=== PATIENT | female | born 1995 | race Caucasian/White ===

== ENCOUNTER 2016-11-14 02:10 | Emergency (ER) | payer OTHER ==
[~2016-11-14] VITALS: Ht 170.2 cm; Wt 60.0 kg
[~2016-11-14 02:10] MED LIST: HYDR2.5T PO; SERT-132 PO; Z.0.NO CURRENT MEDS; ZOLP5TAB3 PO
[2016-11-14 04:27] VITALS: BP 125/68; PULSE 68; RESP 18; TEMP 98.1; O2SAT 100
[2016-11-14 04:36] LABS: AUTOMATED NEUTROPHIL # 6.9 TH/MM3 (1.8-7.7); BASOPHIL % 0.3 % (0.0-2.0); EOSINOPHIL # 0.2 TH/MM3 (0-0.4); EOSINOPHIL % 1.9 % (0.0-4.0); HEMATOCRIT 45.9 % (35.0-46.0); HEMO FLAGS DIFF FINAL; LYMPH % 15.3 % (9.0-44.0); LYMPHOCYTE # 1.4 TH/MM3 (1.0-4.8); MEAN CELL VOLUME 89.4 FL (80.0-100.0); MEAN CORPUSCULAR HEMOGLOBIN 29.3 PG (27.0-34.0); MEAN CORPUSCULAR HGB CONC 32.8 % (32.0-36.0); MONO % 7.6 % (0.0-8.0); NEUT % 74.9 % (16.0-70.0); PLATELET COUNT 257 TH/MM3 (150-450); RED BLOOD COUNT 5.14 MIL/MM3 (4.00-5.30); RED CELL DISTRIBUTION WIDTH 12.6 % (11.6-17.2); WHITE BLOOD COUNT 9.2 TH/MM3 (4.0-11.0)
[2016-11-14 05:02] LABS: ANION GAP 6 MEQ/L (5-15); AST (GOT) 10 U/L (15-37); BICARBONATE 28.4 MEQ/L (21.0-32.0); BLOOD UREA NITROGEN 9 MG/DL (7-18); CHLORIDE 100 MEQ/L (98-107); GLOMERULAR FILTRATION RATE 82 ML/MIN (>89); SODIUM (NA) 134 MEQ/L (136-145)
[2016-11-14 05:04] LABS: ACETAMINOPHEN LESS THAN 2.0 MCG/ML (10.0-30.0); ALT (GPT) 18 U/L (10-53)
[2016-11-14 05:05] LABS: ALKALINE PHOSPHATASE 69 U/L (45-117); TOTAL BILIRUBIN ADULT 0.5 MG/DL (0.2-1.0)
[2016-11-14 05:11] LABS: ALCOHOL LESS THAN 3 MG/DL (0-5)
[2016-11-14 06:38] VITALS: BP 120/64; PULSE 66; RESP 18; O2SAT 100
--- NOTE | 2016-11-14 06:59 | PD ---
HPI Chief Complaint: Psychiatric Symptoms Time Seen by Provider: 04:12 Travel History International Travel<30 days: No Contact w/Intl Traveler<30days: No Traveled to known affect area: No History of Present Illness HPI Patient is a 21-year-old female who is brought in under [place] act because she has been cutting herself. She says she has been more depressed lately and is cutting herself with glass. She denies taking anything to harm herself. She denies drug or alcohol use. She denies any medical complaints at this time. [facility], [facility]ER [facility] Past Medical History Diminished Hearing: No Immunizations Current: Yes ?: Not LMP: IUD Social History Alcohol Use: No Tobacco Use: Yes Substance Use: No Allergies-Medications (Allergen,Severity, Reaction): Coded Allergies: No Known Allergies (Verified , 10/30/16) Reported Meds & Prescriptions Reported Meds & Active Scripts Active Zolpidem (Zolpidem Tartrate) 5 Mg Tab 5 Mg PO HS PRN Sertraline (Sertraline HCl) 50 Mg Tab 50 Mg PO DAILY Lortab 2.5/500 (Acetaminophen/Hydrocodone Bitart) Tab 1 Tab PO Q6HPRN FOR PAIN Reported No Current Meds (Miscellaneous Medication) Misc Review of Systems Except as stated in HPI: all other systems reviewed are Neg General / Constitutional: No: Fever, Chills HENT: No: Headaches, Lightheadedness Cardiovascular: No: Chest Pain or Discomfort Respiratory: No: Shortness of Breath Gastrointestinal: No: Nausea, Vomiting Genitourinary: No: Dysuria Musculoskeletal: No: Edema Skin: Positive Other (abrasions) Neurologic: No: Weakness, Dizziness Psychiatric: Positive: Depression Physical Exam Narrative GENERAL: Awake and alert, in no acute distress. SKIN: Focused skin assessment warm/dry. Several superficial scratches on her arms as well as her right leg. There is no active bleeding, no wounds that need to be repaired. HEAD: Atraumatic. Normocephalic. EYES: Pupils equal and round. No scleral icterus. ENT: Mucous membranes pink and moist. NECK: Trachea midline. No JVD. CARDIOVASCULAR: Regular rate and rhythm. No murmur appreciated. RESPIRATORY: No accessory muscle use. Clear to auscultation. Breath sounds equal bilaterally. GASTROINTESTINAL: Abdomen soft, non-tender, nondistended. MUSCULOSKELETAL: No obvious deformities. No clubbing. No cyanosis. No edema. NEUROLOGICAL: Awake and alert. No obvious cranial nerve deficits. Motor grossly within normal limits. Normal speech. PSYCHIATRIC: Appropriate mood and affect; insight and judgment normal. Data Data Last Documented VS Vital Signs Date Time Temp Pulse Resp B/P (MAP) Pulse Ox O2 Delivery O2 Flow Rate FiO2 11/14/16 06:38 66 18 120/64 (82) 100 Room Air 11/14/16 04:27 98.1 Orders Orders Complete Blood Count With Diff (11/14/16 04:12) Comprehensive Metabolic Panel (11/14/16 04:12) Ed Urine Pregnancytest Poc (11/14/16 04:12) Psych Screen (11/14/16 04:12) Drug Screen, Random Urine (11/14/16 04:12) Alcohol (Ethanol) (11/14/16 04:12) Salicylates (Aspirin) (11/14/16 04:12) Tylenol (Acetaminophen) (11/14/16 04:12) Labs Laboratory Tests Test 11/14/16 04:22 White Blood Count 9.2 TH/MM3 Red Blood Count 5.14 MIL/MM3 Hemoglobin 15.1 GM/DL Hematocrit 45.9 % Mean Corpuscular Volume 89.4 FL Mean Corpuscular Hemoglobin 29.3 PG Mean Corpuscular Hemoglobin Concent 32.8 % Red Cell Distribution Width 12.6 % Platelet Count 257 TH/MM3 Mean Platelet Volume 10.3 FL Neutrophils (%) (Auto) 74.9 % Lymphocytes (%) (Auto) 15.3 % Monocytes (%) (Auto) 7.6 % Eosinophils (%) (Auto) 1.9 % Basophils (%) (Auto) 0.3 % Neutrophils # (Auto) 6.9 TH/MM3 Lymphocytes # (Auto) 1.4 TH/MM3 Monocytes # (Auto) 0.7 TH/MM3 Eosinophils # (Auto) 0.2 TH/MM3 Basophils # (Auto) 0.0 TH/MM3 CBC Comment DIFF FINAL Differential Comment Blood Urea Nitrogen 9 MG/DL Creatinine 0.87 MG/DL Random Glucose 81 MG/DL Total Protein 7.4 GM/DL Albumin 4.1 GM/DL Calcium Level 9.5 MG/DL Alkaline Phosphatase 69 U/L Aspartate Amino Transf (AST/SGOT) 10 U/L Alanine Aminotransferase (ALT/SGPT) 18 U/L Total Bilirubin 0.5 MG/DL Sodium Level 134 MEQ/L Potassium Level 4.0 MEQ/L Chloride Level 100 MEQ/L Carbon Dioxide Level 28.4 MEQ/L Anion Gap 6 MEQ/L Estimat Glomerular Filtration Rate 82 ML/MIN Salicylates Level LESS THAN 1.7 MG/DL Acetaminophen Level LESS THAN 2.0 MCG/ML Ethyl Alcohol Level LESS THAN 3 MG/DL MDM Medical Decision Making Medical Screen Exam Complete: Yes Emergency Medical Condition: Yes Medical Record Reviewed: Yes Differential Diagnosis Psychosis versus intoxication versus suicidal thoughts Narrative Course Patient is a 21-year-old female who is brought in under [place] act because she has been cutting herself. Exam shows several superficial cuts, nothing requiring repair. Labs sent show no acute abnormalities. Patient will be medically cleared for psychiatric evaluation. Diagnosis Primary Impression: Deliberate self-cutting Condition: Stable Karin Chavis MD Nov 14, 2016 06:59
[2016-11-14 10:00] VITALS: BP 112/62; PULSE 62; RESP 16; O2SAT 99
[2016-11-14 23:07] VITALS: BP 136/64; PULSE 79; RESP 18
[2016-11-15 02:41] VITALS: BP 111/63; PULSE 97; RESP 18
[2016-11-15 06:49] VITALS: BP 119/64; PULSE 81; RESP 18; O2SAT 99
--- NOTE | 2016-11-15 07:38 | PD.PSY.CON ---
Provisional Diagnosis Admission Date Date of consultation 11/15/2016 [place]. 1. Adjustment disorder with mixed disturbance of emotions and conduct [place] II. Deferred History of Present Illness Service Psychiatry Consult Requested By Emergency department Reason for Consult [place]aj act Primary Care Physician Jonelle Zimmer M.D. HPI Ms. Zimmer is a 21-year-old female with a reported history of depression treated by primary care who presents under a Maharaj act alleging that the patient cut her leg in a suicidal gesture. Reviewing the electronic medical record, I see no prior psychiatric contact within our system. Patient seen and examined. Chart reviewed. Case discussed with nurse in the J- pod. There has been no evidence of any suicidality or homicidality while under observation in the J-pod. On my examination this morning, the patient says that she has been stressed because of difficulties with her ex-boyfriend, Lanre. Apparently the 2 broke up about a month and a half ago but have continued living together. Lanre is bringing other women home, and this is upsetting the patient. Patient reports that she has a history of nonsuicidal self-injurious behavior and was feeling somewhat "numb" and so cut herself superficially on her left leg to try to ameliorate this feeling. She denies that this cutting was suicidal in nature. She denies any suicidal or homicidal ideation, intent or plan now and contracts for safety. She is future oriented. She does admit to feeling mildly depressed but I can elicit no severe depressive or hypomanic/ manic symptoms at this time. She is following with a resident clinic and taking Zoloft for this problem, although she has not been on it long enough for it to have therapeutic effect. She denies any audiovisual hallucinations, and I can elicit no delusional material. The remainder of the psychiatric ROS is negative. The patient is requesting discharge from the emergency room this morning. Past psychiatric history: The patient reports a history of depression. She saw a psychotherapist several years ago but has never been under psychiatric care. She was prescribed Zoloft about 3 weeks ago from a resident clinic in the area and has been taking it as prescribed. No reported issues with tolerability, but she has not yet seen much therapeutic benefit from this agent. She denies a history of psychiatric admissions or suicide attempts. She does endorse a history of nonsuicidal self-injurious behavior as noted above. Family history: Patient reports that her mother has depression. Her father may have some degree of bipolar illness, but this has never been diagnosed. She denies a family history of suicide. Chemical dependency history: Patient described herself as a social drinker. Denies any abuse of drugs or alcohol. Social history: Patient broke up with her boyfriend Lanre but to continue to live together. She is single with no children. She has 2 semesters of college. 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 She denies any access to guns or firearms. She denies any particular yazidi or spiritual beliefs. With the patient's permission, I did endeavor on several occasions to obtain collateral from her mother, Ciera. I have tried both at the number provided to me by the patient [phone] as well as at the number listed in the EMR without success. I did leave voicemails on the first number requesting a call back. Review of Systems Except as stated in HPI: all other systems reviewed are Neg Past Family Social History Coded Allergies: No Known Allergies (Verified , 10/30/16) Past Medical History Patient denies any significant medical history Active Scripts Zolpidem (Zolpidem) 5 Mg Tab, 5 MG PO HS Y for INSOMNIA, #30 TAB 0 Refills Prov:Elyssa Barnett MD R3 10/30/16 Sertraline (Sertraline) 50 Mg Tab, 50 MG PO DAILY, #30 TAB 0 Refills Prov:Elyssa Barnett MD R3 10/30/16 Hydrocodone-Acetaminophen (Lortab 2.5/500) Tab, 1 TAB PO Q6HPRN, #15 FOR PAIN Prov:VIPIN APPLE M.D. 12/14/10 Reported Medications Miscellaneous (No Current Meds) Misc 12/14/10 Patient reports that she takes Zoloft at low dose Patient's Strengths (min. 2) Able to access clinical care. Verbally fluent. Physical Exam Physical exam completed by ED provider. On my examination today, the patient appears to be in no acute physical distress. No motor abnormalities noted. I do note several superficial scratches on the lateral aspect of her left leg. Labs and vitals reviewed: Vital Signs Vital Signs Date Time Temp Pulse Resp B/P (MAP) Pulse Ox O2 Delivery O2 Flow Rate FiO2 11/15/16 06:49 81 18 119/64 (82) 99 11/14/16 10:00 Room Air 11/14/16 04:27 98.1 Lab Results Test 11/14/16 09:00 Urine Opiates Screen NEG Urine Barbiturates Screen NEG Urine Amphetamines Screen NEG Urine Benzodiazepines Screen NEG Urine Cocaine Screen NEG Urine Cannabinoids Screen NEG Mental Status Examination Patient is in hospital attire. Patient is fairly well groomed and maintaining basic hygiene. Patient is awake and alert and oriented 3. No evidence of delirium. No motor abnormalities appreciated. Speech is within normal limits for rate, tone, volume. Language and fund of knowledge average. Focus and concentration intact. Memory grossly intact on clinical exam. Mood is mildly depressed. Affect remains full and reactive. Thought process linear. No delusions elicited. Denies audiovisual hallucinations and does not appear internally stimulated. Denies suicidal or homicidal ideation, intent, or plan and contracts for safety. Insight and judgment seem fair. Assessment & Plan Problem List: (1) Adjustment disorder ICD Codes: F43.20 - Adjustment disorder, unspecified Assessment & Plan 21-year-old female with psychiatric history as detailed above who presents under a [place] act. On my examination today, the patient denies any suicidal or homicidal ideation. She is kendell for safety. She engaged in NSSIB in response to conflict with ex-boyfriend and has a history of NSSIB in the past. There is no evidence of any severely unstable mental illness as defined under the Maharaj act in this patient at this time. She appears to be attending to her basic needs. Synthesizing this information and weighing the relevant factors, I tire installer that the patient does not presently meet the Maharaj act criteria. I have lifted the Maharaj act. The patient is requesting discharge from the ER this morning. I have counseled the patient regarding warning signs for need to return to the psychiatric emergency room as part of a general safety plan. I have recommended outpatient psychiatric follow-up, and the nurse will provide the appropriate referrals. She should continue with her Zoloft as prescribed, although I have cautioned her to remain vigilant for any incipient mood instability given possible family history of BPAD. Patient is otherwise psychiatrically clear for discharge from the ED. Thank you very much for this consultation. Request HC Surrog/Guard Advoc?: No Problem Qualifiers (1) Adjustment disorder: Qualified Codes: F43.25 - Adjustment disorder with mixed disturbance of emotions and conduct Orlando Richmond MD Nov 15, 2016 07:38
== END 2016-11-15 11:35 | disposition home or self-care (01) ==
LOC: NEPE 02:10 → NEPJ 11-15 11:35
DX: F39 Unspecified mood [affective] disorder (principal); X78.9XXA Intentional self-harm by unspecified sharp object, initial encounter; Z79.899 Other long term (current) drug therapy
CPT/HCPCS: 80053; 80307; 84703; 85025; 99284